=== PATIENT | female | born 1990 | race Caucasian/White ===

== ENCOUNTER 2018-11-16 11:57 | Emergency (ER) | payer BC ==
[2018-11-16 12:29] VITALS: BP 133/83
--- NOTE | 2018-11-16 12:36 | UC ---
Neck Pain HPI - HPI Summary HPI Summary: 28-year-old female presents with complaints of 2 day history of tenderness to her left anterior neck. States she has had this intermittently for the past 6 months. States it typically lasts a few days and then resolves on its own. States if she presses on the area has a sensation like she would be unable to swallow although denies any actual dysphagia. Denies fever, chills, headache, visual disturbances, slurred or difficulty speaking, facial droop, numbness, tingling, or weakness of extremities, dizziness, vertigo, nasal congestion, ear pain, sore throat, cough, or difficulty breathing. - History of Current Complaint Chief Complaint: UCGeneralIllness Stated Complaint: NECK PAIN Time Seen by Provider: 11/16/18 12:33 Hx Obtained From: Patient Hx Last Menstrual Period: 11/10/18 Pain Intensity: 5 - Allergies/Home Medications Allergies/Adverse Reactions: Allergies Allergy/AdvReac Type Severity Reaction Status Date / Time No Known Allergies Allergy Verified 11/16/18 12:29 Home Medications: Home Medications NK [No Home Medications Reported] 11/16/18 [History Confirmed 11/16/18] PMH/Surg Hx/FS Hx/Imm Hx Previously Healthy: Yes - Denies significant PMH - Surgical History Surgical History: Yes Surgery Procedure, Year, and Place: appy - Family History Known Family History: Positive: Non-Contributory - Social History Occupation: Employed Full-time Lives: With Family Alcohol Use: Occasionally Substance Use Type: None Smoking Status (MU): Never Smoked Tobacco Review of Systems All Other Systems Reviewed And Are Negative: Yes Constitutional: Negative: Fever, Chills Skin: Negative: Rash Eyes: Negative: Blurred Vision, Diplopia, Drainage, Eye Redness, Photophobia ENT: Negative: Sore Throat, Ear Ache, Nasal Discharge, Sinus Congestion, Sinus Pain/Tenderness Respiratory: Negative: Shortness Of Breath Cardiovascular: Negative: Palpitations, Chest Pain Gastrointestinal: Positive: Negative Genitourinary: Positive: Negative Musculoskeletal: Positive: Negative Neurological: Negative: Headache, Weakness, Paresthesia, Numbness Is Patient Immunocompromised?: No Physical Exam - Summary Physical Exam Summary: GENERAL APPEARANCE: Well developed, well nourished, alert and cooperative, and appears to be in no acute distress. HEAD: Atraumatic. Normocephalic. EYES: Conjunctiva clear. No drainage. PERRL, EOM intact. Vision is grossly intact. EARS: External auditory canals and tympanic membranes clear, hearing grossly intact. NOSE: No nasal discharge. THROAT: Pharynx normal. No tonsilar inflammation, swelling, exudate, or lesions. Uvula midline. Oral cavity normal. Teeth and gingiva in good general condition. NECK: Neck supple. Mild tenderness to the left anterior neck without mass, nodule, or lymphadenopathy noted. No carotid bruits. Thyroid smooth without nodules or goiter. CARDIAC: Normal S1 and S2. No S3, S4 or murmurs. Rhythm is regular. There is no peripheral edema, cyanosis or pallor. Extremities are warm and well perfused. Capillary refill is less than 2 seconds. Peripheral pulses intact. LUNGS: Clear to auscultation without rales, rhonchi, wheezing or diminished breath sounds. ABDOMEN: Positive bowel sounds. Soft, nondistended, nontender. No guarding or rebound. No masses or hepatosplenomegally. MUSKULOSKELETAL: ROM intact to all extremities. No joint erythema or tenderness. Normal muscular development. Normal gait. NEUROLOGICAL: CN II-XII intact. Strength and sensation symmetric and intact throughout. SKIN: Skin normal color, texture and turgor with no lesions or eruptions. Triage Information Reviewed: Yes Vital Signs: Initial Vital Signs Temp 99 F 11/16/18 12:25 Pulse 92 11/16/18 12:25 Resp 18 11/16/18 12:25 BP 133/83 11/16/18 12:25 Pulse Ox 100 11/16/18 12:25 Vital Signs Reviewed: Yes Neck Pain Course/Dx - Course Course Of Treatment: 28-year-old female presents with complaints of 2 day history of tenderness to her left anterior neck. States she has had this intermittently for the past 6 months. States it typically lasts a few days and then resolves on its own. States if she presses on the area has a sensation like she would be unable to swallow although denies any actual dysphagia. Denies fever, chills, headache, visual disturbances, slurred or difficulty speaking, facial droop, numbness, tingling, or weakness of extremities, dizziness, vertigo, nasal congestion, ear pain, sore throat, cough, or difficulty breathing. Afebrile. Vital signs stable. Patient's exam was overall unremarkable except for some mild tenderness palpation to her left anterior neck. Reviewed findings with patient and discussed that the most likely cause of her pain is from a tender lymph node although I cannot fully rule out other causes. I do not see any indications for urgent imaging at this time. I am recommending watchful waiting with follow-up with ENT especially if symptoms do not resolve. Anticipatory guidance require immediate evaluation in the emergency room and warning symptoms were reviewed with the patient. Verbalizes understanding and agrees with plan of care. - Differential Dx/Diagnosis Differential Dx/HQI/PQRI: Neoplasm, Other - swollen lymph node, goiter, carotid artery dissection Provider Diagnosis: Acute neck pain Discharge ED - Sign-Out/Discharge Documenting (check all that apply): Patient Departure All imaging exams completed and their final reports reviewed: No Studies - Discharge Plan Condition: Stable Disposition: HOME Patient Education Materials: Lymphadenopathy (ED) Referrals: Jae Perez MD [Medical Doctor] - No Primary Care Phys,NOPCP [Primary Care Provider] - [facility] [place] [facility] [Outside] Additional Instructions: Your exam today was unremarkable. The most likely cause of your symptoms is from a tender lymph node therefore I am recommending watchful waiting at this time. Take acetaminophen (Tylenol) or ibuprofen (Advil, Motrin) according directions as needed for pain. Follow-up with the ears, nose, and throat specialist in 5-7 days if symptoms are not improving. Call for an appointment. I have also provided you with the contact information for the [facility] physician referral service if you need assistance with establishing with a primary care provide. Seek immediate medical attention in the emergency room if you have a sudden severe headache, worsening pain, one pupil that is larger than the other, slurred or difficulty speaking, you are unable to swallow, weakness, numbness, or tingling of the arms and legs, or any worsening of symptoms. - Billing Disposition and Condition Condition: STABLE Disposition: Home
== END 2018-11-16 13:14 | disposition home or self-care (01) ==
LOC: UCEAST 11:57
DX: M54.2 Cervicalgia (principal)
CPT/HCPCS: 99201; G0463